=== PATIENT | male | born 1975 | race Caucasian/White ===

== ENCOUNTER 2017-04-30 10:13 | Emergency (ER) | payer BC, OTHER ==
[~2017-04-30] VITALS: Ht 185.4 cm; Wt 107.5 kg
[~2017-04-30 10:13] MED LIST: BUPROPION XL150 MG PO; NORCO 5-325 TA1 EACH PO; PENICILLIN V P500 MG PO; PERCOCET 7.5-31 EACH PO; PROZAC20 MG PO; TRAMADOL HCL50 MG PO
[2017-04-30] MEDS ORDERED: ONDANSETRON ODT8 MG PO (11:26)
== END 2017-04-30 11:50 | disposition home or self-care (01) ==
LOC: ED 10:13
DX: A08.4 Viral intestinal infection, unspecified (principal); F41.9 Anxiety disorder, unspecified; Z79.899 Other long term (current) drug therapy
CPT/HCPCS: 80053; 81001; 83690; 85025; 96361; 96374; 96375; 99283; J1885; J2405; J7030

== ENCOUNTER 2018-08-20 16:27 | Emergency (ER) | payer BC ==
[~2018-08-20] VITALS: Ht 185.4 cm; Wt 107.5 kg
[~2018-08-20 16:27] MED LIST changes: +ONDANSETRON ODT8 MG PO
== END 2018-08-20 18:02 | disposition home or self-care (01) ==
LOC: ED 16:27
DX: M54.9 Dorsalgia, unspecified (principal); F41.9 Anxiety disorder, unspecified; Z79.899 Other long term (current) drug therapy
CPT/HCPCS: 96372; 99283-25; J1200; J1630; J1885

== ENCOUNTER 2025-03-11 07:33 | Day surgery (SDC) | payer BC ==
[~2025-03-11] VITALS: Ht 185.4 cm; Wt 90.0 kg
[~2025-03-11 07:33] MED LIST changes: +IBLOOD GLUCOSE TEST STRIP 1 EA TEST VI PRN; +LACTATED RINGER'S 1,000 ML IV SCH; +LIDOCAINE HCL 1% 5 ML SDV INJ ONE; +MIDAZOLAM HCL 5 MG/5 ML VIAL IV PRN; +fentaNYL citrate 100 MCG/2 ML VIAL IV PRN
[2025-03-11] MEDS ORDERED: BIOTIN1 M1 PO (07:46)
[2025-03-11] MEDS ORDERED: MULTI VITAMIN1 EACH PO (07:46)
[2025-03-11] MEDS ORDERED: CALCIUM CARBON260 M1 PO (07:47)
[2025-03-11] MEDS ORDERED: VITAMIN B COMP1 EACH PO (07:47)
[2025-03-11 07:57] VITALS: BP 119/64
[2025-03-11] MEDS ORDERED: fentaNYL citrate 100 MCG/2 ML VIAL ONE (08:14)
[2025-03-11] MEDS ORDERED: MIDAZOLAM HCL 5 MG/5 ML VIAL ONE (08:15)
--- NOTE | 2025-03-11 09:18 | NUR ---
03/11/[address] PRESENTS TO PATIENT'S BEDSIDE AND IS SPEAKING WITH HIM. HIS QUESTIONS ARE ANSWERED.
[2025-03-11 09:31] VITALS: BP 99/61
--- NOTE | 2025-03-12 11:33 | OR ---
[facility] [address], [place] [address] Signed DATE OF OPERATION: 03/11/2025 SURGEON: Erna Palafox MD PREOPERATIVE DIAGNOSIS: Colon screening. POSTOPERATIVE DIAGNOSIS: Normal colon to cecum. PROCEDURE: Total colonoscopy to cecum. ANESTHESIA: Intravenous sedation, fentanyl 100 mcg, Versed 6 mg. 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 He has no current symptoms of bleeding, diarrhea, or constipation and no family history of colon cancer. He did undergo colonoscopy in the distant past in [place], [place] and was said to have no findings at that time. He understands the risk of screening colonoscopy including, but not limited to bleeding, infection, and perforation and wishes to proceed. FINDINGS: The prep was excellent. Complete colonoscopy was undertaken of the cecum without question. There was no evidence of polyps, diverticular formation, colitis, or cancer. DESCRIPTION OF PROCEDURE: The patient was brought to the endoscopy suite and placed in lateral decubitus position and given intravenous sedation to the point of slurred speech and nystagmus with full cardiopulmonary monitoring. Digital rectal examination was performed, which was normal. An Olympus video colonoscope was passed in the rectum and manipulated throughout the colon ultimately intubating the cecum itself. The ileocecal valve and appendiceal orifice were normal. The scope was withdrawn and examination throughout showed no sign of abnormality specifically no polyps, diverticular formation, colitis, or cancer. Retroflex of the rectum was normal. The scope was removed. The patient was taken to the recovery room in good condition. CONCLUDING DIAGNOSIS: Electronically Signed By: ERNA PALAFOX MD 03/12/25 1133 PATIENT NAME: ROHIT KELLER OPERATIVE REPORT DATE OF : 75 REPORT #: [id number] PHYSICIAN: ERNA PALAFOX MD PCP: MARGARITA RANGEL PAC REPORT IS CONFIDENTIAL AND NOT TO BE RELEASED WITHOUT AUTHORIZATION [address] [place], [place] [address] Signed Normal colon to cecum. PLAN: Recommend repeat colonoscopy in 10 years or sooner if clinically indicated. He will return to the ongoing care of Margarita Rangel. MD HILL Mo/MODL /[id number] cc: Margarita Rangel PA-C Copies: ~ Electronically Signed By: ERNA PALAFOX MD 03/12/25 1133 PATIENT NAME: ROHIT KELLER OPERATIVE REPORT DATE OF : 75 REPORT #: [id number] PHYSICIAN: ERNA PALAFOX MD PCP: MARGARITA RANGEL PAC REPORT IS CONFIDENTIAL AND NOT TO BE RELEASED WITHOUT AUTHORIZATION
== END 2025-03-11 09:41 | disposition home or self-care (01) ==
LOC: OPS 07:33 → DS 07:34 → OPS 08:30
PROVIDERS: ATTEND Surgery
PROC: 0DJD8ZZ Inspection of Lower Intestinal Tract, Via Natural or Artificial Opening Endoscopic (ICD-10-PCS; principal; 2025-03-11 08:30)
DX: Z12.11 Encounter for screening for malignant neoplasm of colon (principal); G56.03 Carpal tunnel syndrome, bilateral upper limbs; Z87.891 Personal history of nicotine dependence; Z90.3 Acquired absence of stomach [part of]
CPT/HCPCS: 99153; G0500; J2250; J3010

== ENCOUNTER 2025-05-11 06:50 | Emergency (ER) | payer BC ==
[~2025-05-11] VITALS: Ht 185.4 cm; Wt 97.7 kg
[~2025-05-11 06:50] MED LIST changes: +BIOTIN1 M1 PO; +CALCIUM CARBON260 M1 PO; -IBLOOD GLUCOSE TEST STRIP 1 EA TEST VI PRN; -LACTATED RINGER'S 1,000 ML IV SCH; -LIDOCAINE HCL 1% 5 ML SDV INJ ONE; -MIDAZOLAM HCL 5 MG/5 ML VIAL IV PRN; +MULTI VITAMIN1 EACH PO; +VITAMIN B COMP1 EACH PO; -fentaNYL citrate 100 MCG/2 ML VIAL IV PRN
[2025-05-11] MEDS ORDERED: HYDROCODON-ACE1 EA11 PO (08:29)
[2025-05-11] MEDS ORDERED: KETOROLAC TROMETHAMINE 60 MG/2 ML VIAL IM ONE (08:30)
[2025-05-11 09:00] VITALS: BP 110/75
== END 2025-05-11 09:00 | disposition home or self-care (01) ==
LOC: ED 06:50
DX: M25.511 Pain in right shoulder (principal); Z98.84 Bariatric surgery status; Z79.899 Other long term (current) drug therapy
CPT/HCPCS: 96372; 99283; J1885